=== PATIENT | male | born 1960 | race Caucasian/White ===

== ENCOUNTER 2020-03-02 08:09 | Outpatient (RCR) | payer OTHER ==
[~2020-03-02] VITALS: Ht 180 cm; Wt 131.0 kg
== END 2020-03-02 14:09 | disposition home or self-care (01) ==
LOC: PREOP 08:09
PROVIDERS: ATTEND Surgery
DX: Z01.818 Encounter for other preprocedural examination (principal); C44.619 Basal cell carcinoma of skin of left upper limb, including shoulder; Z20.828 Contact with and (suspected) exposure to other viral communicable diseases
CPT/HCPCS: 87635

== ENCOUNTER 2020-03-08 08:19 | Day surgery (SDC) | payer OTHER ==
[~2020-03-08] VITALS: Ht 180 cm; Wt 131.0 kg
[2020-03-08] VITALS (9 sets, daily range): BP systolic 138–174; BP diastolic 80–98
--- OUTSIDE RECORDS SUMMARY | 2020-03-08 08:28 | XMS REPORT | Continuity of Care Document ---
Author Organization Unknown Address Unknown Phone Unavailable Allergies Active Description Code Type Severity Reaction Onset Reported/Identified Relationship to Patient Clinical Status Yes heparin [id number] Drug Allergy Unknown PT WAS IN [facility]- 03/01/2020 Medications There is no data. Problems Date Dx Coded Attending Type Code Diagnosis Diagnosed By 08/27/1408 DAKSHA ZAIDI DO Ot C44.619 BASAL CELL CARCINOMA SKIN/ LEFT UPPER LI 08/27/1408 DAKSHA ZAIDI DO Ot Z01.818 ENCOUNTER FOR OTHER PREPROCEDURAL EXAMIN 08/27/1408 DAKSHA ZAIDI DO Ot Z20.828 CONTACT W AND EXPOSURE TO OTH VIRAL COMM Procedures There is no data. Results Test Result Range Coronavirus SARS-CoV-2 SO 2018 - 0 12:39 Coronavirus Ab [Units/volume] in Serum Negative Negative Encounters ACCT No. Visit Date/Time Discharge Status Pt. Type Provider Facility Loc./Unit Complaint [id number] 09/01/2019 15:00:00 09/01/2019 23:59: 59 CLS Outpatient MADHAVI ROBERTS [facility] [id number] 03/02/2020 08:09:00 020 14:09:00 DIS Outpatient DAKSHA ZAIDI DO [facility] PREOP BASAL CELL CARCINOMA LE FT SHOULDER [id number] 03/08/2020 08:00:00 P EN Preadmit DAKSHA ZAIDI DO [facility] SDC [facility]
[2020-03-08] MEDS ORDERED: LACTATED RINGERS 1,000 ML IV PRN (08:38)
[2020-03-08] MEDS ORDERED: ceFAZolin 2 GM IV Premixed 50 ML IV ONE (08:45)
[2020-03-08] MEDS ORDERED: ceFAZolin 2 GM IV Premixed 50 ML ONE (09:02)
--- NOTE | 2020-03-08 09:31 | Progress Note-Pre Operative ---
Pre-Operative Progress Note H&P Reviewed The H&P was reviewed, patient examined and no changes noted. Date Seen by Provider: Mar 08, 2020 Time Seen by Provider: : Date H&P Reviewed: Mar 08, 2020 Time H&P Reviewed: 09:31 Pre-Operative Diagnosis: left shoulder basal cell carcinoma DAKSHA ZAIDI DO Mar 08, 2020 09:31
[2020-03-08] MEDS ORDERED: ONDANSETRON 4 MG/2 ML (SDV) Z0FRAN ONE (10:00)
[2020-03-08] MEDS ORDERED: PROPOFOL INJECTION 50 ML IV ONE (10:00)
[2020-03-08] MEDS ORDERED: MIDAZOLAM 2 MG/2 ML (VERSED) VIAL ONE (10:01)
[2020-03-08] MEDS ORDERED: fentaNYL INJECTION 100 MCG/2 ML AMP ONE (10:01)
[2020-03-08] MEDS ORDERED: BUP/EPI 0.5% 1:200,000 (SENSORCAINE) 30 ML VIAL ONE (10:02)
--- NOTE | 2020-03-08 11:00 | Progress Note-Post Operative ---
Post-Operative Progess Note Surgeon (s)/Quality Control Technician (s) Surgeon DAKSHA ZAIDI DO Quality Control Technician: na Pre-Operative Diagnosis left shoulder basal cell carcinoma Post-Operative Diagnosis same Procedure & Operative Findings Date of Procedure 03/08/20 Procedure Performed/Findings excision left shoulder lesion skin and subcutaneous tissue 8x4.3cm Anesthesia Type mac c local Estimated Blood Loss Estimated blood loss (mL): min Specimens/Packing Specimens Removed lesion left shoulder DAKSHA ZAIDI DO Mar 08, 2020 11:00
--- NOTE | 2020-03-08 11:02 | Discharge Inst-Simple/Standard ---
Discharge Inst-Standard Patient Instructions/Follow Up Plan of Care/Instructions/FU: 2 weeks Marya for suture removal Activity as Tolerated: No Discharge Diet: Regular Diet Other Inst to Patient Follow up Appt: Make appointment for 2 week. Instructions: No lifting greater than 10 pounds, trying to keep tension off of the incision. No strenuous activity. May shower in 24 hours, no tub bath or soaking. Use incentive spirometer at home as directed. No Smoking Skin/Wound Care: You have stitches in, keep area clean and dry and try to keep tension off of the incision. Symptoms to Report: Appetite Changes, Extremity Discoloration, Numbness/Tingling, Swelling Increased, Bleeding Excessive, Eyesight Changes, Pain Increased, Urine Color Change, Constipation(Persistent), Fever over 101 degree F, Pain/Pressure in chest, Urinating Difficulty, Cough Up/Vomit Blood, Heart Beat Irreg/Pounding, Pain/Pressure in jaw, Vaginal Bleeding Increase, Cramps in feet or legs, Lightheadedness, Pain/Pressure in shoulder, Diarrhea(Persistent), Memory Changes Suddenly, Questions/Concerns, Weight gain consecutive days, Dizziness/Fainting, Nausea/Vomiting, Shortness of Breath, Weight gain over 2 pounds If questions or concerns contact your physician Or seek help at emergency department. DAKSHA ZAIDI DO Mar 08, 2020 11:02
--- NOTE | 2020-03-08 11:05 | Anesthesia-General Post-Op ---
MAC Patient Condition Mental Status/LOC: Same as Preop Cardiovascular: Satisfactory Nausea/Vomiting: Absent Respiratory: Satisfactory Pain: Controlled Complications: Absent Post Op Complications Complications None Follow Up Care/Instructions Patient Instructions None needed. Anesthesiology Discharge Order Discharge Order Patient is doing well, no complaints, stable vital signs, no apparent adverse anesthesia problems. No complications reported per nursing. VIC SHAH CRNA Mar 08, 2020 11:05
[2020-03-08] MEDS ORDERED: MEPERIDINE (DEMEROL) INJ 50 MG/ML IVP ONE (11:15)
[2020-03-08] MEDS ORDERED: fentaNYL INJECTION 100 MCG/2 ML AMP IVP ONE (11:15)
[2020-03-08] MEDS ORDERED: morphine INJ 10 MG/ML 1ML (SYR OR VIAL) IVP ONE (11:15)
[2020-03-08] MEDS ORDERED: ONDANSETRON 4 MG/2 ML (SDV) Z0FRAN IVP PRN (11:15)
--- NOTE | 2020-03-08 14:02 | OPERATIVE REPORT ---
DATE OF SERVICE: 03/08/2020 PREOPERATIVE DIAGNOSIS: Left shoulder basal cell carcinoma. POSTOPERATIVE DIAGNOSIS: Left shoulder basal cell carcinoma. PROCEDURE: Excision of skin lesion, left shoulder 8 x 4.3 cm. SURGEON: Daksha Malhotra DO ANESTHESIA: MAC with local. ESTIMATED BLOOD LOSS: Minimal. COMPLICATIONS: None. INDICATIONS: The patient is a 60-year-old male with lesion on left shoulder. He understands risks and benefits of procedure and wished to proceed with procedure. Consent was signed in the chart. DESCRIPTION OF PROCEDURE: The patient was taken to the operating suite, was prepped and draped in sterile fashion. Timeout was performed. Local anesthetic was infiltrated around the lesion. An elliptical incision measuring 8 x 4.3 cm was made around the lesion. Skin and subcutaneous tissue was removed with 15-blade scalpel and cautery. Hemostasis was achieved. The wound was irrigated. The skin was mobilized from the subcutaneous tissue to help with closure. A 0 Prolene was placed in vertical mattress and simple interrupted sutures for closure. The area was then washed and dried and sterile bandage was applied. The patient tolerated procedure well without any complications, was taken to recovery room in stable condition. RECOMMENDATIONS: The patient will follow up in 2 weeks. Any problems before that, will be seen at that time. Job ID: [id number] DocumentID: [id number] Dictated Date: 03/08/2020 11:04:48 Thickener Operator Date: 03/08/2020 14:00:49 Dictated By: DAKSHA MALHOTRA DO
== END 2020-03-08 12:35 | disposition home or self-care (01) ==
LOC: SDC 08:19
PROVIDERS: ATTEND Surgery
DX: C44.619 Basal cell carcinoma of skin of left upper limb, including shoulder (principal); E66.01 Morbid (severe) obesity due to excess calories; G47.33 Obstructive sleep apnea (adult) (pediatric); Z68.41 Body mass index [BMI] 40.0-44.9, adult
CPT/HCPCS: 87081

== ENCOUNTER → 2020-12-25 | Outpatient (CLI) | payer OTHER ==
[2020-12-25 10:47] LABS: BUN/CREATININE RATIO 18; CALCIUM 9.8 MG/DL (8.5-10.1); CARBON DIOXIDE 24 MMOL/L (21-32); CHLORIDE 106 MMOL/L (98-107); CREATININE SERUM 0.91 MG/DL (0.60-1.30); GFR ESTIMATED > 60; GLUCOSE 120 MG/DL (70-105); POTASSIUM 4.4 MMOL/L (3.6-5.0); SODIUM 140 MMOL/L (135-145)
[2020-12-25 10:48] LABS: ALANINE AMINOTRANSFERASE 38 U/L (0-55); ALBUMIN 4.6 GM/DL (3.2-4.5); ALKALINE PHOSPHATASE 70 U/L (40-136); BILIRUBIN,TOTAL 0.3 MG/DL (0.1-1.0); TOTAL PROTEIN 6.9 GM/DL (6.4-8.2)
[2020-12-25 14:57] LABS: CHOLESTEROL 222 MG/DL (< 200); HDL CHOLESTEROL 39 MG/DL (40-60); TRIGLYCERIDES 239 MG/DL (<150); VLDL CHOLESTEROL 48 MG/DL (5-40)
== END ==
LOC: LAB FS 09:23
PROVIDERS: ATTEND Family Medicine
DX: Z00.00 Encounter for general adult medical examination without abnormal findings (principal); Z20.822 Contact with and (suspected) exposure to COVID-19
CPT/HCPCS: 36415; 80053; 80061; 83036; 84403; 86769

== ENCOUNTER → 2021-01-01 | Outpatient (CLI) | payer OTHER | LOC: LAB FS 10:44 | PROVIDERS: ATTEND Family Medicine | DX: R20.2 Paresthesia of skin (principal) | CPT/HCPCS: 36415; 82607; 84443 ==

== ENCOUNTER → 2021-11-21 | Outpatient (CLI) | payer OTHER ==
[~2021-11-21] MED LIST: CATHETER FLUSH 10 ML SYR IV PRN; HOLD METFORMIN - RECEIVED CONTRAST 20 ML VIAL IV SCH; IOHEXOL 350 MG/ML 150 ML (OMNIPAQUE 350) VIAL IV ONE; NS 100 ML (IVPB) BAG IV ONE
--- NOTE | 2021-11-21 16:01 | Diagnostic Imaging Report ---
PROCEDURE: CT abdomen and pelvis with contrast. TECHNIQUE: Multiple contiguous axial images were obtained through the abdomen and pelvis after administration of intravenous contrast. Auto Exposure Controls were utilized during the CT exam to meet ALARA standards for radiation dose reduction. All CT scans use one or more of the following dose optimizing techniques: Automated exposure control, MA and/or KvP adjustment based on patient size and exam type or iterative reconstruction. INDICATION: Right flank pain. FINDINGS: There is some linear scarring at the left lung base. There is a 3.2 cm lobulated cyst in the dome of the liver. There are several small stones layering out in the dependent portion of the gallbladder. Portal vein is patent. There is a calcification in the region of the sphincter of Oddi that could be a common duct calculus. Pancreas appears normal. The spleen is not enlarged. The adrenals are normal. There is a small cyst in the inferior pole of the right kidney. Left kidney is unremarkable. There is minimal calcific atherosclerosis of the aorta. The small bowel is not dilated. The appendix is normal. Colon appears normal. Urinary bladder appears normal. Prostate is not enlarged. IMPRESSION: Cholecystolithiasis. Questionable choledocholithiasis. Correlation with liver enzyme studies recommended. Dictated by: Dictated on workstation # [id number]
== END ==
LOC: RAD FS 15:23
PROVIDERS: ATTEND Family Medicine
DX: K80.10 Calculus of gallbladder with chronic cholecystitis without obstruction (principal)
CPT/HCPCS: 74177; Q9967

== ENCOUNTER → 2021-11-21 | Outpatient (CLI) | payer OTHER ==
[2021-11-21 12:23] LABS: BASOPHILS # (AUTO) 0.1 10^3/uL (0.0-0.1); BASOPHILS % (AUTO) 1 % (0-10); EOSINOPHILS # (AUTO) 0.1 10^3/uL (0.0-0.3); EOSINOPHILS % (AUTO) 2 % (0-10); HEMATOCRIT 43 % (40-54); HEMOGLOBIN 14.8 g/dL (13.3-17.7); LYMPHOCYTES # (AUTO) 1.2 10^3/uL (1.0-4.0); LYMPHOCYTES % (AUTO) 17 % (12-44); MEAN CORPUSCULAR HEMOGLOBIN 29 pg (25-34); MEAN CORPUSCULAR HGB CONC 34 g/dL (32-36); MEAN CORPUSCULAR VOLUME 83 fL (80-99); MEAN PLATELET VOLUME 10.6 fL (9.0-12.2); MONOCYTES # (AUTO) 0.6 10^3/uL (0.0-1.0); MONOCYTES % (AUTO) 8 % (0-12); NEUTROPHILS % (AUTO) 72 % (42-75); PLATELET COUNT 243 10^3/uL (130-400); WHITE BLOOD COUNT 6.9 10^3/uL (4.3-11.0)
[2021-11-21 12:28] LABS: GLUCOSE, URINE (UA) NEGATIVE (NEGATIVE); KETONES,URINE TRACE (NEGATIVE); LEUKOCYTE ESTERASE ,URINE NEGATIVE (NEGATIVE); NITRITE,URINE NEGATIVE (NEGATIVE); PH,URINE 5.5 (5-9); PROTEIN,URINE 1+ (NEGATIVE)
[2021-11-21 13:16] LABS: CLARITY,URINE CLEAR; COLOR,URINE AMBER
[2021-11-21 13:18] LABS: BACTERIA,URINE NEGATIVE /HPF; BILIRUBIN,URINE 3+ (NEGATIVE); RBC,URINE 0-2 /HPF; WBC,URINE 0-2 /HPF
[2021-11-21 13:19] LABS: HYALINE CASTS, URINE 0-2 /LPF; RENAL EPITHELIAL CELLS,URINE RARE /HPF; SQUAMOUS EPITHELIAL CELL,UR RARE /HPF
[2021-11-21 13:21] LABS: ATYPICAL LYMPHOCYTES 1 %; EOSINOPHILS % (MANUAL) 1 %; LYMPHOCYTES % (MANUAL) 15 %; MONOCYTES % (MANUAL) 5 %; NEUTROPHILS % (MANUAL) 76 %; PLATELET ESTIMATE NORMAL; REACTIVE LYMPHOCYTES 2 %
[2021-11-21 13:22] LABS: RBC MORPH NORMAL; TOXIC GRANULATION/VACUOLAZATIO 2+
[2021-11-21 13:23] LABS: BUN/CREATININE RATIO 14; CARBON DIOXIDE 21 MMOL/L (21-32); CHLORIDE 101 MMOL/L (98-107); CREATININE SERUM 1.05 MG/DL (0.60-1.30); GFR ESTIMATED 80; GLUCOSE 151 MG/DL (70-105); POTASSIUM 4.1 MMOL/L (3.6-5.0); SODIUM 135 MMOL/L (135-145)
[2021-11-21 13:24] LABS: ALANINE AMINOTRANSFERASE 308 U/L (0-55); ALBUMIN 4.6 GM/DL (3.2-4.5); ALKALINE PHOSPHATASE 123 U/L (40-136); BILIRUBIN,TOTAL 4.5 MG/DL (0.1-1.0); CALCIUM 10.1 MG/DL (8.5-10.1); LIPASE 121 U/L (8-78); TOTAL PROTEIN 7.3 GM/DL (6.4-8.2)
== END ==
LOC: LAB FS 11:59
PROVIDERS: ATTEND Family Medicine
DX: R10.11 Right upper quadrant pain (principal)
CPT/HCPCS: 36415; 80053; 81000; 83690; 85007; 85027

== ENCOUNTER → 2021-12-10 | Outpatient (CLI) | payer OTHER ==
[2021-12-10 09:57] LABS: CARBON DIOXIDE 24 MMOL/L (21-32); CHLORIDE 103 MMOL/L (98-107); POTASSIUM 4.4 MMOL/L (3.6-5.0); SODIUM 140 MMOL/L (135-145)
[2021-12-10 09:58] LABS: ALANINE AMINOTRANSFERASE 64 U/L (0-55); ALKALINE PHOSPHATASE 114 U/L (40-136); BILIRUBIN,TOTAL 0.8 MG/DL (0.1-1.0); BUN/CREATININE RATIO 19; CALCIUM 10.6 MG/DL (8.5-10.1); CREATININE SERUM 1.09 MG/DL (0.60-1.30); GFR ESTIMATED 77; GLUCOSE 140 MG/DL (70-105); TOTAL PROTEIN 7.3 GM/DL (6.4-8.2)
[2021-12-10 09:59] LABS: ALBUMIN 4.6 GM/DL (3.2-4.5)
== END ==
LOC: LAB FS 08:44
PROVIDERS: ATTEND Family Medicine
DX: I10 Essential (primary) hypertension (principal)
CPT/HCPCS: 36415; 80053